=== PATIENT | female | born 1965 | race Caucasian/White ===

== ENCOUNTER 2018-07-13 12:12 | Emergency (ER) | payer OTHER ==
[~2018-07-13] VITALS: Ht 149.9 cm; Wt 52.0 kg
[2018-07-13] MEDS ORDERED: PERTUSS(ACELL),DIPH,TET VAC/PF 0.5 ML VIAL IM ONE (13:45)
[2018-07-13] MEDS ORDERED: IBUPROFEN 600 MG TABLET PO ONE (13:45)
[2018-07-13] MEDS ORDERED: CEPHALEXIN MONOHYDRATE 500 MG CAPSULE PO ONE (13:45)
[2018-07-13 14:18] VITALS: BP 128/74
== END 2018-07-13 14:31 | disposition home or self-care (01) ==
LOC: EMS 12:13
DX: S61.431A Puncture wound without foreign body of right hand, initial encounter (principal); R03.0 Elevated blood-pressure reading, without diagnosis of hypertension; W22.8XXA Striking against or struck by other objects, initial encounter; Y93.89 Activity, other specified; Y92.89 Other specified places as the place of occurrence of the external cause; Y99.8 Other external cause status
CPT/HCPCS: 90471; 90715; 99283